=== PATIENT | female | born 1965 | race Caucasian/White ===

== ENCOUNTER 2019-01-03 07:35 | Day surgery (SDC) | payer BC ==
[~2019-01-03] VITALS: Ht 167.6 cm; Wt 54.4 kg
--- NOTE | 2019-01-03 10:41 | NUR ---
PT LAYING IN BED-ALERT, ORIENTED AND SUPPORTED BY HER FRIEND BOBBY. FIRST SCOPE FOR PT, SOME MILD ANXIETY, SEEMED TO BE ABLE TO HELP PT COPE. SHE SEEMS TO BE VERY CONSCIOUS ABOUT WHAT SHE PUTS INTO HER BODY. EXTENDED A BLESSING, WILL FOLLOW NEEDED
--- NOTE | 2019-01-03 11:33 | NUR ---
01/03/19 1133 Radha Chen 1122 PATIENT ARRIVES TO PACU SLEEPING, AWAKENS WITH VERBAL STIMULI. RESP EVEN AND UNLABORED, NC OFF, ROOM AIR SATS >94%. PATIENT PASSING GAS. 1130 PATIENT SLEEPING, AWAKENS WITH VERBAL STIMULI, THEN BACK TO SLEEP. RESP EVEN AND UNLABORED. DR DAVIS AT BEDSIDE TO TALK WITH PT.
--- NOTE | 2019-01-03 22:37 | OR ---
[facility] [address], [place] [address] Signed DATE OF OPERATION: 01/03/2019 SURGEON: Vincent Davis MD PREOPERATIVE DIAGNOSIS: Colon screening. POSTOPERATIVE DIAGNOSIS: Diminutive polyp of splenic flexure (excised). PROCEDURE PERFORMED: Total colonoscopy to cecum with cold morcellation polypectomy x1. ANESTHESIA: Intravenous sedation, fentanyl 150 mcg and Versed 6 mg. INDICATION: This 53-year-old white woman is a patient of Shannan Dela Cruz, is referred for screening colonoscopy. She has no new symptoms of bleeding, diarrhea, or constipation, but she does have lifelong constipation otherwise. She has no family history of colon cancer that she is aware of. She is admitted to undergo screening colonoscopy understanding the risks of bleeding, infection, and perforation. FINDINGS: The prep was good. Complete colonoscopy was undertaken to the cecum without question. She had one very small probable adenomatous polyp at the splenic flexure, which was excised with cold morcellation technique. The remaining colon was normal. She did have some pigmentation suggestive of melanosis, but not densely so. DESCRIPTION OF PROCEDURE: The patient was brought to the endoscopy suite, placed in lateral decubitus position, and given intravenous sedation to the point of slurred speech and nystagmus. Digital rectal examination was normal. An Olympus video colonoscope was passed in the rectum and manipulated throughout the colon. In the area of the splenic flexure was a small area suggestive of a small adenoma. Narrow band imaging was used confirming this. This area was excised with cold morcellation technique. The scope was advanced further ultimately to the cecum. The ileocecal valve and appendiceal orifice were normal. The scope was removed. The plate and withdrawn and examination throughout showed no sign of abnormality. Retroflexed Electronically Signed By: VINCENT DAVIS MD 01/03/19 2237 PATIENT NAME: GUY LEIVA OPERATIVE REPORT DATE OF : 63 REPORT #: [id number] PHYSICIAN: VINCENT DAVIS MD PCP: YRIS SUAZO REPORT IS CONFIDENTIAL AND NOT TO BE RELEASED WITHOUT AUTHORIZATION [facility] [address], [place] [address] Signed view of the rectum was normal as well. The scope was removed and the patient was taken to recovery room in good condition. CONCLUDING DIAGNOSIS: Small polyp at hepatic flexure. PLAN: If the polyp proves to be an adenoma, we would recommend repeat colonoscopy in 5 years. If it is not an adenoma, then 10 years would be reasonable, sooner if symptoms should occur. As regards to her chronic constipation problem, we will advise MiraLAX 1 scoop daily as she permits it. She will return to the ongoing care of Shannan Dela Cruz otherwise. MD ALETHEA Pulliam/JULIANA /[id number] cc: Shannan Dela Cruz PA-C Copies: SHANNAN DELA CRUZ PAC ~ Electronically Signed By: VINCENT DAVIS MD 01/03/19 2237 PATIENT NAME: GUY LEIVA OPERATIVE REPORT DATE OF : 63 REPORT #: [id number] PHYSICIAN: VINCENT DAVIS MD PCP: YRIS SUAZO REPORT IS CONFIDENTIAL AND NOT TO BE RELEASED WITHOUT AUTHORIZATION
== END 2019-01-03 12:40 | disposition home or self-care (01) ==
LOC: DS 07:35 → OPS 07:35 → DS 09:00 → OPS 12:40
PROVIDERS: Surgery
PROC: 0DBL8ZZ Excision of Transverse Colon, Via Natural or Artificial Opening Endoscopic (ICD-10-PCS; principal; 2019-01-03 09:00)
DX: Z12.11 Encounter for screening for malignant neoplasm of colon (principal); D12.3 Benign neoplasm of transverse colon; K59.09 Other constipation; Z88.8 Allergy status to other drugs, medicaments and biological substances; Z91.040 Latex allergy status
CPT/HCPCS: 99153; G0500; J2250; J3010; J7120